=== PATIENT | female | born 1985 | race Asian ===

== ENCOUNTER 2025-01-09 10:59 | Emergency (ER) | payer OTHER ==
[~2025-01-09] VITALS: Ht 160 cm; Wt 79.9 kg
[2025-01-09] MEDS ORDERED: ACET-907 PO (11:09)
[2025-01-09] MEDS ORDERED: MULTTAB20 PO (11:09)
[2025-01-09] MEDS ORDERED: ECOT81TA5 PO (11:09)
[2025-01-09] MEDS ORDERED: CLAR10CA3 PO (11:09)
[2025-01-09 12:10] VITALS: BP 108/60; TEMP 97.2; O2SAT 98
== END 2025-01-09 12:13 | disposition home or self-care (01) ==
LOC: M ED 11:34
DX: R20.2 Paresthesia of skin (principal); Z91.09 Other allergy status, other than to drugs and biological substances; Z79.82 Long term (current) use of aspirin; Z79.1 Long term (current) use of non-steroidal anti-inflammatories (NSAID); Z79.899 Other long term (current) drug therapy

== ENCOUNTER 2025-02-16 12:39 | Outpatient (CLI) | payer OTHER ==
[~2025-02-16] VITALS: Ht 160 cm; Wt 81.8 kg
[~2025-02-16 12:39] MED LIST: ACET-907 PO; CLAR10CA3 PO; ECOT81TA5 PO; MULTTAB20 PO
[2025-02-16 13:11] VITALS: BP 121/68
[2025-02-16 14:04] VITALS: BP 120/68
[2025-02-16 14:50] LABS: BASO # 0.1 10^3/uL (0.0-0.2); BASO % 0.5 % (0.0-1.0); EOS # 0.3 10^3/uL (0.0-0.5); EOS % 2.6 % (0.0-3.0); LYMPH # 2.1 10^3/uL (1.5-5.0); LYMPH % 19.3 % (24.0-44.0); MONO # 0.9 10^3/uL (0.0-0.8); MONO % 7.9 % (2.0-8.0); NEUTROPHILS # 7.5 10^3/uL (1.5-8.5); NEUTROPHILS % 68.5 % (36.0-66.0); PLATELET COUNT, AUTOMATED 251 10^3/uL (150-450)
[2025-02-16 15:15] LABS: ALT/SGPT 11 U/L (7.0-40); AST/SGOT 12 U/L (<34); CALCIUM LEVEL 9.1 MG/DL (8.5-10.1); CARBON DIOXIDE LEVEL 26 MMOL/L (20-31); CHLORIDE LEVEL 103 MMOL/L (98-107); CK-MB VALUE MASS 2.9 NG/ML (<3.6); CPK CREATINE PHOSPHOKINASE 144 U/L (34-145); CREATININE FOR GFR 0.61 MG/DL (0.55-1.30); GLOMERULAR FILTRATION RATE > 90.0 (>60); MAGNESIUM LEVEL 1.6 MG/DL (1.8-2.4); MB/CK RELATIVE INDEX 2.01 (< OR =4); POTASSIUM SERUM 4.0 MMOL/L (3.5-5.1); SODIUM LEVEL 140 MMOL/L (136-145)
[2025-02-16] MEDS ORDERED: HOME MED LIST COMPLETE! XX SCH (15:30)
[2025-02-16 15:37] LABS: AMORPHOUS SEDIMENT SMALL (NEGATIVE); APPEARANCE, URINE HAZY (CLEAR); BACTERIA, URINE AUTO NEGATIVE (NEGATIVE); BILIRUBIN, URINE AUTO NEGATIVE (NEGATIVE); BLOOD, URINE BLOOD NEGATIVE (NEGATIVE); GLUCOSE, URINE (UA) AUTO 1+ mg/dL (NEGATIVE); KETONE, URINE AUTO NEGATIVE (NEGATIVE); LEUKOCYTE ESTERASE, URINE AUTO NEGATIVE (NEGATIVE); MUCUS, URINE SMALL (NEGATIVE); NITRITE, URINE AUTO NEGATIVE (NEGATIVE); PROTEIN, URINE AUTO NEGATIVE (NEGATIVE); RBC, URINE AUTO 2 /HPF (0-3); SPECIFIC GRAVITY URINE AUTO 1.028 (1.002-1.035); SQUAMOUS EPITHELIAL CELL UR AU 1 /HPF (0-6); UROBILINOGEN, URINE AUTO 0.2 mg/dL (0.0-2.0); WBC, URINE AUTO 1 /HPF (0-3); YEAST LIKE CELL URINE AUTO SMALL
[2025-02-17 10:32] LABS: BVAB 2 NEGATIVE (NEGATIVE); CANDIDA GLABRATA NAA NOT DETECTED (NOT DETECTED); TRICH VAG BY NAA NOT DETECTED (NOT DETECTED)
[2025-02-17 11:41] LABS: CHLAMYDIA TRACHOMATIS NAA NOT DETECTED (NOT DETECTED)
== END 2025-02-16 15:30 | disposition home or self-care (01) ==
LOC: M LDO 12:39
PROVIDERS: ATTEND Advanced Practice Midwife
DX: O26.852 Spotting complicating pregnancy, second trimester (principal); O26.892 Other specified pregnancy related conditions, second trimester; O09.512 Supervision of elderly primigravida, second trimester; R07.9 Chest pain, unspecified; R10.11 Right upper quadrant pain; Z3A.22 22 weeks gestation of pregnancy
CPT/HCPCS: 36415; 59025; 80053; 81001; 81513; 82550; 82553; 83735; 84484; 85025; 87086; 87481; 87591; 87661; 93005; G0463

== ENCOUNTER 2025-04-08 10:59 | Outpatient (CLI) | payer OTHER ==
[~2025-04-08] VITALS: Ht 160 cm; Wt 86.1 kg
[2025-04-08 11:22] VITALS: BP 107/70
[2025-04-08 11:30] VITALS: BP 107/70; TEMP 98.2
[2025-04-08 12:39] LABS: PLATELET COUNT, AUTOMATED 283 10^3/uL (150-450)
[2025-04-08 12:57] LABS: ALT/SGPT 9 U/L (7.0-40); AST/SGOT < 8 U/L (<34); CALCIUM LEVEL 8.4 MG/DL (8.5-10.1); CARBON DIOXIDE LEVEL 21 MMOL/L (20-31); CHLORIDE LEVEL 102 MMOL/L (98-107); CREATININE FOR GFR 0.42 MG/DL (0.55-1.30); GLOMERULAR FILTRATION RATE > 90.0 (>60); POTASSIUM SERUM 3.8 MMOL/L (3.5-5.1); SODIUM LEVEL 134 MMOL/L (136-145)
== END 2025-04-08 14:10 | disposition home or self-care (01) ==
LOC: M LDO 10:59
PROVIDERS: ATTEND Advanced Practice Midwife
DX: O26.893 Other specified pregnancy related conditions, third trimester (principal); O09.513 Supervision of elderly primigravida, third trimester; O26.23 Pregnancy care for patient with recurrent pregnancy loss, third trimester; R42 Dizziness and giddiness; R25.2 Cramp and spasm; Z3A.29 29 weeks gestation of pregnancy
CPT/HCPCS: 36415; 59025; 80053; 85027; G0463